=== PATIENT | male | born 1950 | race Caucasian/White ===

== ENCOUNTER 2021-10-24 07:57 | Day surgery (SDC) | payer MEDICARE ==
[2021-10-24] MEDS ORDERED: Xylocaine 1% Vial 30 ML PF IJ ONE (07:58)
[2021-10-24] MEDS ORDERED: BUPIVACAINE 0.5% VIAL IJ ONE (07:58)
[2021-10-24] MEDS ORDERED: Depo-Medrol 40 MG/ML IM ONE (07:58)
[2021-10-24] MEDS ORDERED: DIPRIVAN 200 MG/20 ML IV ONE (09:06)
[2021-10-24] MEDS ORDERED: Lactated Ringers 1,000 ML IV ONE (09:19)
--- NOTE | 2021-10-24 10:48 | XRAY ---
Indication: Left L4-S1 RFA. Intraoperative fluoroscopy provided for 22 seconds. 3 digital spot image submitted for interpretation demonstrates posterior needle tips projecting over the expected left L4-S1 nerve roots. Correlate with intraoperative findings/report. Incidental overlying electronic stimulator device.
--- NOTE | 2021-10-24 11:11 | XRAY ---
22 seconds fluoroscopy time in surgery for left L4-S1 RFA.
== END 2021-10-24 09:40 | disposition home or self-care (01) ==
LOC: SDC-PAIN 07:57
PROVIDERS: ATTEND Psychiatry & Neurology Pain Medicine
DX: M47.816 Spondylosis without myelopathy or radiculopathy, lumbar region (principal); E11.9 Type 2 diabetes mellitus without complications; I10 Essential (primary) hypertension; Z79.899 Other long term (current) drug therapy
CPT/HCPCS: 64635; 64636; 72100; 77002; 82947; 99100; J1030; J2001; J2704

== ENCOUNTER 2021-11-07 07:56 | Day surgery (SDC) | payer MEDICARE ==
[2021-11-07] MEDS ORDERED: BUPIVACAINE 0.5% VIAL IJ ONE (07:57)
[2021-11-07] MEDS ORDERED: Xylocaine 1% Vial 30 ML PF IJ ONE (07:57)
[2021-11-07] MEDS ORDERED: Depo-Medrol 40 MG/ML IM ONE (07:57)
[2021-11-07] MEDS ORDERED: Lactated Ringers 1,000 ML IV ONE (09:25)
[2021-11-07] MEDS ORDERED: DIPRIVAN 200 MG/20 ML IV ONE (09:27)
--- NOTE | 2021-11-07 10:13 | XRAY ---
34 seconds fluoroscopy time in surgery for right L4-S1 RFA.
--- NOTE | 2021-11-07 10:14 | XRAY ---
Indication: Right L4-S1 RFA. Intraoperative fluoroscopy provided for 34 seconds. 3 digital spot image submitted for interpretation demonstrates posterior needle tips projecting over the expected right L4-S1 nerve roots. Correlate with intraoperative findings/report.
== END 2021-11-07 09:57 | disposition home or self-care (01) ==
LOC: SDC-PAIN 07:56
PROVIDERS: ATTEND Psychiatry & Neurology Pain Medicine
DX: M47.816 Spondylosis without myelopathy or radiculopathy, lumbar region (principal); E11.9 Type 2 diabetes mellitus without complications; I10 Essential (primary) hypertension; Z79.899 Other long term (current) drug therapy
CPT/HCPCS: 64635; 64636; 72100; 77002; 82947; 99100; J1030; J2001; J2704

== ENCOUNTER 2021-11-29 07:39 | Day surgery (SDC) | payer MEDICARE ==
[2021-11-29] MEDS ORDERED: BUPIVACAINE 0.5% VIAL IJ ONE (07:40)
[2021-11-29] MEDS ORDERED: Depo-Medrol 40 MG/ML IM ONE (07:40)
[2021-11-29] MEDS ORDERED: Lactated Ringers 1,000 ML IV ONE (08:51)
[2021-11-29] MEDS ORDERED: DIPRIVAN 200 MG/20 ML IV ONE (08:56)
--- NOTE | 2021-11-29 10:06 | XRAY ---
37 seconds of fluoroscopy was used in surgery for bilateral hips intra-articular injections and a left greater trochanteric bursa injection.
--- NOTE | 2021-11-29 10:08 | XRAY ---
Indication: Bilateral hip and left greater trochanter bursa injections. Intraoperative fluoroscopy provided for 37 seconds. 2 digital spot images submitted for interpretation demonstrates needle tip projecting lateral to the left/right femur necks. Small amount of contrast injected for needle tip placement with additional contrast seen just lateral to the left greater trochanter. Correlate with intraoperative findings/report.
== END 2021-11-29 09:45 | disposition home or self-care (01) ==
LOC: SDC-PAIN 07:39
PROVIDERS: ATTEND Psychiatry & Neurology Pain Medicine
DX: M16.0 Bilateral primary osteoarthritis of hip (principal); E11.9 Type 2 diabetes mellitus without complications; I10 Essential (primary) hypertension; Z79.899 Other long term (current) drug therapy
CPT/HCPCS: 20610; 73521; 77002; 82947; J1030; J2704; Q9966